=== PATIENT | male | born 1970 ===

== ENCOUNTER 2024-10-11 06:31 | Day surgery (SDC) | payer BC, SELFPAY ==
[2024-09-26 09:00] LABS: Hematocrit 43.8 % (39.0-52.0); Hemoglobin 15.1 g/dL (13.0-18.0); Mean Corp Hgb Conc. 34.5 g/dL (33.0-37.0); Mean Corpuscular Volume 85.2 fL (80.0-94.0); Platelet Count 246 10^3/uL (130-400); Red Cell Dist. Width 12.9 % (11.5-14.5)
[2024-09-26 09:18] LABS: Blood Urea Nitrogen 14 mg/dl (9-20); Calcium 9.4 mg/dl (8.4-10.2); Carbon Dioxide 29 mmol/L (22-30); Chloride 104 mmol/L (98-107); Glucose 90 mg/dl (70-99); Potassium 4.9 mmol/L (3.5-5.1); Sodium 138 mmol/L (135-145); eGFR > 60.00
[2024-09-26 14:14] VITALS: BMI 32.3
[2024-10-11] VITALS (8 sets, daily range): BP systolic 117–149; BP diastolic 79–93; BMI 32.3
--- NOTE | 2024-10-11 07:26 | W.SUR.PREOP ---
Pre-Operative Surgical Note
-
I have examined this patient prior to the performance of the scheduled procedure.
The patient's condition is unchanged from the time of the current History and
Physical and the patient is able to undergo the scheduled procedure.
--- NOTE | 2024-10-11 08:44 | HP.FOC2 ---
Focused History & Physical
Chief Complaint
HPI:
Chief Complaint: Umbilical hernia
HPI / Indication for Planned Procedure: This is a 54-year-old male who presents with a symptomatic umbilical hernia in the setting of a diastases recti. Will plan for robotic umbilical hernia repair with mesh.
Relevant Past Medical History: Negative
Relevant Social History: Negative
Relevant Family History: Negative
Relevant Past Surgical History: Positive for (Open appendectomy)
Review of Systems
Review of Pertinent Systems: All Systems Negative
Medication
See Medication form for detailed medications: Yes
Medication List (including Herbals & OTC):
Vitamin D3 1 dose PO DAILY 10/05/24
amlodipine 5 mg-olmesartan 20 mg tablet 1 tab PO DAILY 10/05/24
Medications Reviewed: Yes
Allergies and Reactions
Patient has Allergies: Yes
Noted Allergies and Reactions:
Allergy/AdvReac Type Severity Reaction Status Date / Time
Penicillins Allergy Hives Verified 10/11/24 08:41
Pertinent Physical Exam
All Other Systems: Negative
Head/Neck: Normal
Diagnosis / Assessment
This is a 54-year-old male who presents with a symptomatic umbilical hernia in the setting of a diastases recti.
Plan / Procedure
Will plan for robotic umbilical hernia repair with mesh.
Anesthesia/Sedation to be done by Anesthesia Provider: Yes
[2024-10-11] MEDS: NORMOSOL-R/PLASMALYTE-A 1000 IV (08:51)
[2024-10-11] MEDS: TYLENOL 1000 MG PO (08:51)
--- NOTE | 2024-10-11 11:06 | W.IMMPOSTOP ---
Surgical Immed Post Op Note
-
Primary Surgeon: Cristobal Barber MD
Assisting Surgeon: None
Pre-op Diagnosis: Umbilical hernia
Post-op Diagnosis: Same
Procedure Performed: Robotic umbilical hernia repair with mesh (JEN approach)
Anesthesia Type: General
Specimen / Cultures: None
Estimated Blood Loss: 7 cc
Complications: None
Operative Findings: The patient had a small 1 cm umbilical defect and a larger 2.5 cm supraumbilical defect roughly 1.5 cm superior to the umbilical defect for total dimension of 5 cm long by 2.5 cm wide. Both defects contain preperitoneal fat
which were reduced. Both defects were closed in the transverse direction using 0 V-Loc 180 suture. The preperitoneal space was then reinforced with a 12 cm long by 10 cm wide piece of Bard soft uncoated polypropylene mesh.
--- NOTE | 2024-10-11 11:09 | OR.RPT ---
Operative Report
Operative Report
Patient Name: Oniel Reyes
: 1970
Date of Operation: 10/11/2024
Preoperative Diagnosis: Umbilical hernia
Postoperative Diagnosis: Same
Procedure(s):
Robotic umbilical hernia repair with mesh (JEN approach)
Surgeon(s):
Dr. Barber
Outside Sales Associate(s):
OVI Herbert
Anesthesia: General
Estimated Blood Loss: 7 cc
Urine Output: None
Drains/Lines/Implants:
12 x 10 cm round Bard soft mesh
Specimens:
None
HPI/Surgical Indications:
This is a 54-year-old male who was seen in my office for a symptomatic umbilical bulge and diagnosed with a reducible umbilical hernia. Risks/Benefits/Alternatives were discussed at length, and the patient agreed to proceed with surgery.
Operative Findings: The patient had a small 1 cm umbilical defect and a larger 2.5 cm supraumbilical defect roughly 1.5 cm superior to the umbilical defect for total dimension of 5 cm long by 2.5 cm wide. Both defects contain preperitoneal fat
which were reduced. Both defects were closed in the transverse direction using 0 V-Loc 180 suture. The preperitoneal space was then reinforced with a 12 cm long by 10 cm wide piece of Bard soft uncoated polypropylene mesh.
Procedure Description:
The patient was brought to the Operating Room and placed in the supine position with the arms tucked. IV antibiotics were infused and Venodyne stockings placed. Following uneventful induction of general endotracheal anesthesia, an orogastric tube
was placed. The abdomen was prepped and draped in the usual sterile fashion. The abdomen was entered using a Veress technique which required 1 pass, pneumoperitoneum to 15 mmHg was obtained without difficulty. An 8mm trochar was passed through the
abdominal wall roughly 20 cm laterally from the defect in the left upper quadrant, we then confirmed that no inadvertent injury was made while passing the trocar or Veress needle. We then placed two additional 8 mm ports in the left lower quadrant.
Bilateral tap blocks were performed. The robot was docked. We then introduced our prograsper through the inferior/left hand port and a monopolar scissors through the superior port. We then turned our attention to the hernia which had no
intra-abdominal contents. We then began taking a flap down roughly 6 cm away from the defect and roughly 12 cm in length taking care to stay in the pretransversalis plane. The preperitoneal fat was taken down off of the posterior rectus sheath
both superior and inferior to the hernia defect such that we were able to get our 'volcano sign'. The umbilical defect itself was actually quite small only 1 cm in diameter however about 1.5 cm superior to this there was actually a much larger
supraumbilical defect that measured roughly 2.5 cm in diameter for a total dimension of 2.5 cm wide by 5 cm long. We then worked on reducing the defects which contained preperitoneal fat and continued our dissection out laterally for an additional
6 to 7 cm. Once our flap was created we introduced a ruler and x2 0 V-Loc 180 sutures. The pocket measured 12 x 11 cm. I had my clinic assistant cut a 12 x 10 cm piece of Bard soft mesh marked with 0 Vicryl suture at the center, as I closed the
umbilical defect. The mesh was then sutured to the posterior rectus sheath in 4 quadrants with 2-0 vircyls to ensure good apposition. A 2-0 Monocryl was introduced which was used to close our flap. All sutures were removed. The robot was undocked.
The ports were removed under direct visualization and pneumoperitoneum was evacuated. The port sites were closed with 4-0 Monocryl followed by Dermabond. Counts were correct and overall, the patient tolerated the procedure well and was taken to the
Recovery Room postoperatively in stable condition.
I was the attending physician and performed the procedure with assistance of the PA above. The assistance of OVI Diamond was required due to the complexity of the procedure. During the procedure Autumn assisted with port placement, instrument
and needle exchanges, and closure of the wound. I was present for all portions of the case, excluding skin closure.
Cristobal Barber MD
[2024-10-11] MEDS: ROXICODONE 5 MG PO (12:34)
== END 2024-10-11 12:52 | disposition home or self-care (01) ==
LOC: SDS 06:31
PROVIDERS: ATTENDING PHYSICIAN Surgery; FAMILY PHYSICIAN Family Medicine
DX: K42.9 Umbilical hernia without obstruction or gangrene (principal)
CPT/HCPCS: 49591; 36415; 80048; 85027; 93005; C1781

== ENCOUNTER → 2025-01-23 07:55 | Outpatient (REF) | payer BC, SELFPAY | LOC: REG 07:55 | PROVIDERS: ATTENDING PHYSICIAN Family Medicine | DX: M25.561 Pain in right knee (principal) | CPT/HCPCS: 73564 ==